=== PATIENT | male | born 1940 | race Caucasian/White ===

== ENCOUNTER 2020-12-13 16:13 | Emergency (ER) | payer MEDICARE ==
[2020-12-13 16:20] VITALS: BP 124/81
--- NOTE | 2020-12-13 17:03 | Emergency Department Report ---
ED Lower Extremity HPI - General Chief Complaint: Extremity Injury, Lower Stated Complaint: LEFT HIP PAIN Time Seen by Provider: 12/13/20 16:27 Source: patient Mode of arrival: Ambulatory Limitations: Language Barrier - History of Present Illness Initial Comments: This is a 80-year-old male nontoxic, well nourished in appearance, no acute signs of distress presents to the ED with c/o of right hip pain that started today. Patient is present with son for translation. Patient stated that he was washing his car and developed right hip pain. Patient denies any trauma or injuries. Patient denies any numbness, tingling, fever, chills, nausea, vomiting, chest pain, shortness of breath, headache, stiff neck. Patient denies any joint swelling or joint redness. Patient denies decreased range of motion. Patient stated has decreased gait due to pain. Patient denies any allergies. MD Complaint: hip injury -: This evening Injury: Hip: Right Severity: mild Severity scale (0 -10): 3 Improves With: immobilization Worsens With: weight bearing Associated Symptoms: ambulatory. denies: snap/pop sensation, swelling, numbness, tingling, unable to bear weight, able to partially bear weight - Related Data Previous Rx's Medication Instructions Recorded Last Taken Type Cyclobenzaprine HCl [Flexeril 5mg] 5 mg PO Q8HR PRN #10 tablet 09/02/14 Unknown Rx Sulfamethoxazole/Trimethoprim 1 each PO BID #20 tablet 04/08/16 Unknown Rx [Bactrim DS TAB] Naproxen 500 mg PO Q12H PRN #12 tablet 12/13/20 Unknown Rx Allergies Allergy/AdvReac Type Severity Reaction Status Date / Time No Known Allergies Allergy Verified 12/13/20 16:15 ED Review of Systems ROS: Stated complaint: LEFT HIP PAIN Other details as noted in HPI Comment: All other systems reviewed and negative Constitutional: denies: chills, fever Eyes: denies: eye pain, eye discharge, vision change ENT: denies: ear pain, throat pain Respiratory: denies: cough, shortness of breath, wheezing Cardiovascular: denies: chest pain, palpitations Endocrine: no symptoms reported Gastrointestinal: denies: abdominal pain, nausea, diarrhea Genitourinary: denies: urgency, dysuria Musculoskeletal: denies: back pain, joint swelling, arthralgia Skin: denies: rash, lesions Neurological: denies: headache, weakness, paresthesias Psychiatric: denies: anxiety, depression Hematological/Lymphatic: denies: easy bleeding, easy bruising ED Past Medical Hx - Past Medical History Hx Diabetes: Yes - Surgical History Past Surgical History?: No - Social History Smoking Status: Never Smoker Substance Use Type: None - Medications Home Medications: Home Medications Medication Instructions Recorded Confirmed Last Taken Type Cyclobenzaprine HCl [Flexeril 5mg] 5 mg PO Q8HR PRN #10 tablet 09/02/14 Unknown Rx Sulfamethoxazole/Trimethoprim 1 each PO BID #20 tablet 04/08/16 Unknown Rx [Bactrim DS TAB] Naproxen 500 mg PO Q12H PRN #12 tablet 12/13/20 Unknown Rx ED Physical Exam - General Limitations: Language Barrier General appearance: alert, in no apparent distress - Head Head exam: Present: atraumatic, normocephalic - Eye Eye exam: Present: normal appearance - Neck Neck exam: Present: normal inspection, full ROM - Respiratory Respiratory exam: Absent: respiratory distress - Cardiovascular Cardiovascular Exam: Present: regular rate - Extremities Exam Extremities exam: Present: normal inspection, full ROM, normal capillary refill. Absent: tenderness, joint swelling - Expanded Lower Extremity Exam Right Hip exam: Present: normal inspection, full ROM, external rotation, internal rotation, pelvic stability. Absent: tenderness, swelling, abrasion, laceration, ecchymosis, deformity, crepidus, dislocation, erythema, shortening Upper Leg exam: Present: normal inspection, full ROM. Absent: tenderness, swelling Knee exam: Present: normal inspection, full ROM. Absent: tenderness, swelling Lower Leg exam: Present: normal inspection, full ROM. Absent: tenderness, swelling Ankle exam: Present: normal inspection, full ROM. Absent: tenderness, swelling Foot/Toe exam: Present: normal inspection, full ROM. Absent: tenderness, swelling Neuro vascular tendon exam: Present: no vascular compromise Gait: Positive: observed and normal - Back Exam Back exam: Present: normal inspection, full ROM. Absent: tenderness, CVA tenderness (R), CVA tenderness (L), muscle spasm, paraspinal tenderness, vertebral tenderness, rash noted - Neurological Exam Neurological exam: Present: alert, oriented X3, normal gait - Psychiatric Psychiatric exam: Present: normal affect, normal mood - Skin Skin exam: Present: warm, dry, intact, normal color. Absent: rash ED Course Vital Signs 12/13/20 16:15 Temperature 97.9 F Pulse Rate 88 Respiratory 20 Rate Blood Pressure 124/81 O2 Sat by Pulse 98 Oximetry - Reevaluation(s) Reevaluation #1: 12/13/20 17:02 Patient is speaking in full sentences with no signs of distress noted. ED Lower Extremity MDM - Radiology Data Referring Physician: BRENTON HERNANDEZ Patient Name: MARILYN COOPER Date of : 1940 Sex: Male Report Date: 2020-12-13 Report Status: Finalized [facility] [address] [place] [address] XRay Report Signed Patient: MARILYN COOPER MR#: [id number] 3 : 1940 Acct:[id number] Age/Sex: 80 / M ADM Date: 12/13/20 Loc: ED Attending Dr: Ordering Physician: BRENTON HERNANDEZ NP Date of Service: 12/13/20 Procedure(s): XR hip 2-3V RT Accession Number(s): [id number] cc: BRENTON HERNANDEZ NP Fluoro Time In Minutes: RIGHT HIP 2 VIEWS 1703 INDICATION: Hip pain COMPARISON: None available. FINDINGS: No fractures or dislocations are seen. No significant arthritic changes are noted. Signer Name: Aleksandr Lamas MD Signed: 12/13/2020 5:07 PM Workstation Name: [id number] Transcribed By: GJ Dictated By: Aleksandr Lamas MD Electronically Authenticated By: Aleksandr Lamas MD Signed Date/Time: 12/13/201706 DD/ 06 TD/TT: - Medical Decision Making This is a 80-year-old male that presents with right hip strain. Patient is stable and was examined by me. I referred patient to an orthopedic doctor for further evaluation for possible MRI. X-ray has been obtained and dictated by the radiologist. Patient and son is notified of the x-ray report with noted by the patient. Patient does have normal gait with no tenderness and no joint swelling. No ecchymosis. no joint redness or swelling. Not warm to touch. No signs of cellulites present. Exam is unremarkable with no significant tenderness. Patient was instructed to RICE therapy. Patient is discharged with Motrin. At time of discharge, the patient does not seem toxic or ill in appearance. No acute signs of distress noted. Patient agrees to discharge treatment plan of care. No further questions noted by the patient. Critical care attestation.: If time is entered above; I have spent that time in minutes in the direct care of this critically ill patient, excluding procedure time. ED Disposition Clinical Impression: Strain of right hip Qualifiers: Encounter type: initial encounter Qualified Code(s): S76.011A - Strain of muscle, fascia and tendon of right hip, initial encounter Disposition: TO HOME OR SELFCARE Is pt being admited?: No Does the pt Need Aspirin: No Condition: Stable Instructions: RICE Therapy for Routine Care of Injuries, [id number], Hip Sprain Additional Instructions: Follow-up with a orthopedic doctor in 3-5 days or if symptoms worsen and continue return to emergency room as soon as possible. No physical activity that extremity until cleared by orthopedic doctor Prescriptions: Naproxen 500 mg PO Q12H PRN #12 tablet PRN Reason: Pain , Severe (7-10) Referrals: PRIMARY CAREMD [Referring] - 3-5 Days JOSEFINA HILL MD [Staff Physician] - 3-5 Days Time of Disposition: 17:22
--- NOTE | 2020-12-13 17:12 | XRay Report ---
RIGHT HIP 2 VIEWS 1703 INDICATION: Hip pain COMPARISON: None available. FINDINGS: No fractures or dislocations are seen. No significant arthritic changes are noted. Signer Name: Aleksandr Lamas MD Signed: 12/13/2020 5:07 PM Workstation Name: [id number]
== END 2020-12-13 18:26 | disposition home or self-care (01) ==
LOC: ED 16:13
DX: S76.011A Strain of muscle, fascia and tendon of right hip, initial encounter (principal); E11.9 Type 2 diabetes mellitus without complications; Z79.899 Other long term (current) drug therapy; X58.XXXA Exposure to other specified factors, initial encounter; Y93.89 Activity, other specified; Y92.89 Other specified places as the place of occurrence of the external cause; Y99.8 Other external cause status